=== PATIENT | male | born 1930 | race Caucasian/White ===

== ENCOUNTER 2016-12-28 10:56 | Inpatient (IN) | payer OTHER, BC ==
[~2016-12-28] VITALS: Ht 170.2 cm; Wt 78.9 kg
--- NOTE | ~2016-12-28 | EEG ---
[facility] [place] [address] ELECTROENCEPHALOGRAM Name: JAGUAR SIMENTAL Room #: 363-P ADM IN M.R.#: [id number] Admission: 12/28/16 Attend Phys: Rafi Vo, Discharge: Date of : 30 Report #: [id number] THIS REPORT FOR: //name// CC: Ivon Vo DATE OF SERVICE: 12/28/2016 This patient is being evaluated for falls. EEG was done by placing the electrodes by standard 10-20 system of electrode placement. Both referential and sequential montages were used for recording. Background activity in this patient's EEG is about 10-11 Hz and 40 microvolts. This is a symmetrical activity. This patient became drowsy that is associated with slowing on both sides and the few vertex sharp waves, which was symmetrical. Photic stimulation was unremarkable. Throughout the record, no active epileptiform activity was noticed. IMPRESSION: This patient's EEG is within normal limits. Thank you very much for this referral. <ELECTRONICALLY SIGNED> By: Claude Sun MD 12/29/16907 4 2 Claude Sun MD /nt
[~2016-12-28 10:56] MED LIST: ALDACTONE25 MG PO; ALTACE10 MG PO; ASPIR 8181 MG PO; CIALIS10 MG PO; CIPRO500 MG PO; COREG25 MG PO; COUMADIN 2 MG TA2 M1 PO; CRESTOR10 MG PO; FLOMAX0.4 MG PO; NITROGLYCERIN0.4 MG SUBLING; PRILOSEC 20 MG20 MG PO
[2016-12-28 10:57] VITALS: BP 122/77
[2016-12-28 11:24] LABS: ABSOLUTE NEUTROPHILS 4.2 thou/uL (1.4-8.2); BASOPHILS 0.6 % (0.0-2.0); EOSINOPHILS 1.5 % (0.0-3.0); HEMATOCRIT 39.8 % (42.0-52.0); HEMOGLOBIN 13.6 gm/dL (14.0-18.0); MCH 31.2 pg (26.0-34.0); MCHC 34.1 g/dL (28.0-37.0); MCV 91.7 fL (80.0-100.0); MONOCYTES 10.2 % (1.0-8.0); PLATELET COUNT 164 thou/uL (150-400); POLYS 55.7 % (36.0-66.0); RBC 4.34 mil/uL (4.50-6.00); RDW 13.1 % (10.5-14.5); WBC 7.6 thou/uL (4.0-11.0)
[2016-12-28 11:26] LABS: MANUAL DIFF NO
[2016-12-28 11:37] LABS: APTT 36.5 Seconds (24.5-32.8); INR 3.4; PROTIME 34.6 Seconds (9.3-11.4)
[2016-12-28 11:41] LABS: CALCIUM 8.6 mg/dL (8.5-10.1); CREATININE 0.8 mg/dL (0.7-1.3); POTASSIUM 3.9 mmol/L (3.5-5.1)
[2016-12-28 12:12] VITALS: BP 135/85
[2016-12-28 13:30] VITALS: BP 126/72
[2016-12-28 16:27] VITALS: BP 112/67
[2016-12-28 18:27] LABS: CHOLESTEROL 121 mg/dL (<200); HDL CHOLESTEROL 58 mg/dL (>40); LDL CHOLESTEROL 41 mg/dL (<100); TC:HDL 2.1 Ratio (Not establshd); TRIGLYCERIDE 111 mg/dL (<150); VLDL 22 mg/dL (<40)
[2016-12-28 18:30] LABS: SERUM ASSESSMENT Clear
[2016-12-28 20:00] VITALS: BP 125/70
[2016-12-29] VITALS: BP 127/66
[2016-12-29 04:00] VITALS: BP 119/61
[2016-12-29 05:55] LABS: ABSOLUTE NEUTROPHILS 4.4 thou/uL (1.4-8.2); BASOPHILS 0.4 % (0.0-2.0); EOSINOPHILS 1.2 % (0.0-3.0); HEMATOCRIT 40.3 % (42.0-52.0); HEMOGLOBIN 13.4 gm/dL (14.0-18.0); LYMPHOCYTES 30.6 % (24.0-44.0); MCH 30.6 pg (26.0-34.0); MCHC 33.4 g/dL (28.0-37.0); MCV 91.6 fL (80.0-100.0); MONOCYTES 10.4 % (1.0-8.0); PLATELET COUNT 167 thou/uL (150-400); POLYS 57.4 % (36.0-66.0); RDW 13.2 % (10.5-14.5); WBC 7.6 thou/uL (4.0-11.0)
[2016-12-29 05:56] LABS: MANUAL DIFF NO
[2016-12-29 06:04] LABS: INR 2.9; PROTIME 29.3 Seconds (9.3-11.4)
[2016-12-29 06:09] LABS: CALCIUM 8.8 mg/dL (8.5-10.1); CREATININE 0.9 mg/dL (0.7-1.3); MAGNESIUM 1.6 mg/dL (1.8-2.4); POTASSIUM 3.7 mmol/L (3.5-5.1)
[2016-12-29 08:27] VITALS: BP 94/61
[2016-12-29 11:52] VITALS: BP 103/61
[2016-12-29] MEDS ORDERED: COREG25 MG PO (12:40)
[2016-12-29 15:23] VITALS: BP 118/76
[2017-01-01 19:08] LABS: FREE T4 1.07 ng/dL (0.82-1.77); PROLACTIN 7.6 ng/mL (4.0-15.2)
== END 2016-12-29 16:05 | disposition short-term general hospital (02) | DRG 65 ==
LOC: ER 10:56 → 3W 12:23 → EROBS 12:23 → 3W 13:35
PROVIDERS: Emergency Medicine; Internal Medicine Geriatric Medicine; Psychiatry & Neurology Neurology
DX: I62.9 Nontraumatic intracranial hemorrhage, unspecified (principal); E87.1 Hypo-osmolality and hyponatremia; R55 Syncope and collapse; S09.90XA Unspecified injury of head, initial encounter; I50.9 Heart failure, unspecified; I25.10 Atherosclerotic heart disease of native coronary artery without angina pectoris; N40.0 Benign prostatic hyperplasia without lower urinary tract symptoms; I48.91 Unspecified atrial fibrillation; S00.03XA Contusion of scalp, initial encounter; I11.0 Hypertensive heart disease with heart failure; E78.5 Hyperlipidemia, unspecified; Z96.89 Presence of other specified functional implants; Z87.891 Personal history of nicotine dependence; Z79.01 Long term (current) use of anticoagulants; Z91.041 Radiographic dye allergy status; Z88.8 Allergy status to other drugs, medicaments and biological substances; Z79.82 Long term (current) use of aspirin; Z79.899 Other long term (current) drug therapy; Y93.89 Activity, other specified; Y92.098 Other place in other non-institutional residence as the place of occurrence of the external cause; Y99.8 Other external cause status; W18.39XA Other fall on same level, initial encounter
CPT/HCPCS: 10779

== ENCOUNTER → 2017-04-05 | Outpatient (CLI) | payer OTHER, BC | LOC: CAT 11:34 | DX: K13.70 Unspecified lesions of oral mucosa (principal); M54.12 Radiculopathy, cervical region ==

== ENCOUNTER 2018-01-28 12:50 | Emergency (ER) | payer OTHER, BC ==
[~2018-01-28] VITALS: Ht 170.2 cm; Wt 57.6 kg
[2018-01-28 17:13] VITALS: BP 113/63
== END 2018-01-28 17:13 | disposition home or self-care (01) ==
LOC: ER 12:50
DX: S01.81XA Laceration without foreign body of other part of head, initial encounter (principal); S50.312A Abrasion of left elbow, initial encounter; S80.212A Abrasion, left knee, initial encounter; I11.0 Hypertensive heart disease with heart failure; I50.9 Heart failure, unspecified; K21.9 Gastro-esophageal reflux disease without esophagitis; I25.2 Old myocardial infarction; N40.0 Benign prostatic hyperplasia without lower urinary tract symptoms; Z87.442 Personal history of urinary calculi; Z87.891 Personal history of nicotine dependence; Z88.8 Allergy status to other drugs, medicaments and biological substances; Z91.041 Radiographic dye allergy status; W18.30XA Fall on same level, unspecified, initial encounter; Y93.K1 Activity, walking an animal; Y92.89 Other specified places as the place of occurrence of the external cause; Y99.8 Other external cause status

== ENCOUNTER → 2018-03-17 | Outpatient (CLI) | payer OTHER, BC | LOC: RAD 11:18 | DX: J90 Pleural effusion, not elsewhere classified (principal); J98.11 Atelectasis; J18.1 Lobar pneumonia, unspecified organism ==